=== PATIENT | female | born 1990 | race Caucasian/White ===

== ENCOUNTER 2021-06-02 13:19 | Emergency (ER) | payer OTHER ==
[2021-06-02] MEDS ORDERED: NORCO 5-325 TA1 EACH PO (18:12)
[2021-06-02] MEDS ORDERED: MEDROL 4MG DOSEP4 MG PO (18:12)
[2021-06-02] MEDS ORDERED: CYCLOBENZAPRINE10 MG PO (18:12)
== END 2021-06-02 18:31 | disposition home or self-care (01) ==
LOC: FER 13:19
DX: S22.089A Unspecified fracture of T11-T12 vertebra, initial encounter for closed fracture (principal); S32.019A Unspecified fracture of first lumbar vertebra, initial encounter for closed fracture; S00.03XA Contusion of scalp, initial encounter; M79.602 Pain in left arm; V49.88XA Car occupant (driver) (passenger) injured in other specified transport accidents, initial encounter; Y92.828 Other wilderness area as the place of occurrence of the external cause
CPT/HCPCS: 70450; 72125; 73030; 73090; 73110; 96372; J1100; J1885

== ENCOUNTER → 2021-07-25 | Day surgery (SDC) | payer OTHER ==
[~2021-07-25] VITALS: Ht 167.6 cm; Wt 111.1 kg
[~2021-07-25] MED LIST: ACETAMINOPHEN500 M1 PO; COLACE100 MG PO; CYCLOBENZAPRINE10 MG PO; DESVENLAFAXINE25 MG PO; MEDROL 4MG DOSEP4 MG PO; MIRANA; MIRENA1 EACH XX; MOTRIN600 MG PO; NORCO 5-325 TA1 EACH PO; OXY-IR 5MG5 MG PO
[2021-07-25 08:26] LABS: HCG (URINE) SCREEN NEGATIVE (NEGATIVE)
[2021-07-25 09:16] LABS: ALBUMIN 3.9 g/dL (3.4-5.0); BILIRUBIN - TOTAL 0.4 mg/dL (0.2-1.0); BUN/CREAT RATIO (CALC) 18.3 RATIO; CREATININE 0.71 mg/dL (0.51-0.95); GLOBULIN (CALCULATION) 4.2 g/dL; TOTAL PROTEIN 8.1 g/dL (6.4-8.2)
== END | disposition home or self-care (01) ==
LOC: FAS 08:00
PROVIDERS: Student in an Organized Health Care Education/Training Program
DX: K80.10 Calculus of gallbladder with chronic cholecystitis without obstruction (principal); E66.01 Morbid (severe) obesity due to excess calories; M17.12 Unilateral primary osteoarthritis, left knee; Z96.698 Presence of other orthopedic joint implants; Z96.659 Presence of unspecified artificial knee joint; Z80.0 Family history of malignant neoplasm of digestive organs; Z72.89 Other problems related to lifestyle; Z87.891 Personal history of nicotine dependence
CPT/HCPCS: 36415; 80053; 82150; 83690; 84703; 93005; J1100; J1170; J1644; J1885; J2250; J2405; J2710; J3010; J7120